=== PATIENT | male | born 1995 | race Caucasian/White ===

== ENCOUNTER 2019-10-31 14:28 | Emergency (ER) | payer OTHER, SELFPAY ==
[2019-10-31 14:53] VITALS: BP 132/81; PULSE 106; RESP 16; TEMP 37; O2SAT 97; BMI 38.0
[2019-10-31 14:57] LABS: UTC Strep Screen (Rapid) Positive (Negative)
--- NOTE | 2019-10-31 15:05 | HMH.EDUTC ---
[facility] [place] Clinical Impression: Strep throat Disposition: Home, Self-Care Condition on Discharge: Good Instructions: Strep Throat, DI for Strep Throat Additional Instructions: Drink plenty of fluids. Take tylenol or ibuprofen for pain or fever. Take the medications as directed. Follow up with your regular doctor. GO TO THE ER FOR ANY WORSENING SYMPTOMS Throw your tooth brush away and get a new one by tomorrow. Prescriptions: Amoxicillin/Potassium Clav [Augmentin 875-125 Tablet] 1 tab PO Q12H 10 Days #20 tab Transmission Status: Received by [facility] Referrals: Alex Morel MD [Primary Care Provider] - Time of Disposition: 15:11 Medical Decision Making - Medical Records Medical records reviewed: No: I reviewed the patient's medical records. - Regino Inquiry Pt receiving controlled substance: No Vital Signs: 10/31/19 14:53 10/31/19 15:18 Temperature 98.6 F 98.6 F Temperature Source Oral Oral Pulse Rate 106 H Pulse Rate [Right Brachial] 106 H Respiratory Rate 16 16 Blood Pressure 132/81 Blood Pressure [Left Arm] 132/81 Blood Pressure Mean [Left Arm] 98 Blood Pressure Source Automatic Cuff Blood Pressure Source [Left Arm] Automatic Cuff Blood Pressure Position Supine Blood Pressure Position [Left Arm] Sitting 02 Sat by Pulse Oximetry 97 Oxygen Delivery Method Room Air Room Air - Lab Data Lab results reviewed: Yes: I reviewed the patient's lab results. Lab Results 10/31/19 14:54: Strep Scn Rapid Clinic Positive A [facility] [place] - General Stated complaint: sore throat congestion Time Seen by Provider: 10/31/19 15:05 Mode of Arrival: Ambulatory Source of Information: Patient Description of Symptoms (Recalled from Triage Doc. by RN): PT COMPLAINS OF SORE THROAT AND CONGESTION X3 DAYS; NO FEVERS HEENT Symptoms (Recalled from RN notes): Yes Resp Symptoms (Recalled from RN notes): Yes Skin Symptoms (Recalled from RN notes): No MS Symptoms (Recalled from RN notes): No Functional Status (Recalled from RN notes): NA - History of Present Illness Provider Complaint: He c/o sore throat and feeling bad since yesterday. - Related Data Home Medications Medication Instructions Recorded Confirmed lansoprazole 30 mg capsule,delayed 30 mg PO DAILY 02/20/19 02/20/19 release Previous Rx's Medication Instructions Recorded albuterol sulfate 90 mcg/actuation 2 puff INHALATION Q6H PRN #8 g 02/20/19 aerosol inhaler Penicillin V Potassium 500 mg PO BID 10 Days #20 tab 06/11/19 escitalopram oxalate 20 mg tablet 20 mg PO DAILY 30 Days #30 tab 09/24/19 Amoxicillin/Potassium Clav 1 tab PO Q12H 10 Days #20 tab 10/31/19 [Augmentin 875-125 Tablet] Allergies Allergy/AdvReac Type Severity Reaction Status Date / Time No Known Allergies Allergy Verified 02/20/19 14:44 - Worker's Comp Is this a Worker's Comp case?: No Is this an H Worker's Comp?: No Is this a [place] Worker's Comp?: No [facility] History - Hepatitis A Screen Drug use history?: No High risk sexual behaviors?: No History of sexually transmitted infection?: No Currently employed?: No Childcare worker?: No Do you have indoor plumbing?: Yes Do you have electricity?: Yes Attestation statement:: This patient has been screened for Hepatitis A risk factors. I have reviewed the patient's past medical history: Yes Medical History: Reports:: Asthma Denies:: Cancer, Diabetes Mellitus Type 1, Diabetes Mellitus Type 2, MRSA Laterality Cases: Bilateral: Other Other Surgeries: Yes: Other Amputation: No Fractures: No Comment: [place] Teeth Removed - Social History Smoking Status: Unknown if ever smoked Tobacco Type: smokeless tobacco # Packs/Day (cigarettes): 0 Alcohol Intake: never Substance Use Type: denies use Occupational Status: other Family Hx:: Asthma, Hyperlipidemia, Hypertension ROS Obtained: Yes All systems reviewed & no additional complaints - Constitutional Constituti
[2019-10-31 15:18] VITALS: BP 132/81; PULSE 106; RESP 16; TEMP 37; O2SAT 97
== END 2019-10-31 15:19 | disposition home or self-care (01) ==
PROVIDERS: Emergency Provider Nurse Practitioner Family; PCP Emergency Medicine
DX: J02.0 Streptococcal pharyngitis (principal); J45.909 Unspecified asthma, uncomplicated
CPT/HCPCS: 87880; 99201

== ENCOUNTER 2020-04-11 12:39 | Emergency (ER) | payer OTHER, SELFPAY ==
[2020-04-11 12:40] VITALS: BP 153/95; PULSE 109; RESP 14; TEMP 36.6; O2SAT 98; BMI 35.9
--- NOTE | 2020-04-11 12:52 | HMH.EDUTC ---
[facility] [place] Clinical Impression: Dysuria Disposition: Home, Self-Care Condition on Discharge: Good Instructions: DI for Dysuria -- Adult Additional Instructions: Urine sent for culture, and to rule out gonorrhea and chlamydia. These results should be available Tuesday night. Increase fluids as much as possible. Prescriptions: Phenazopyridine HCl [Pyridium 200mg Tablet] 200 pow PO TID #6 tab Transmission Status: Pending to [facility] Referrals: Alex Morel MD [Primary Care Provider] - Time of Disposition: 13:06 Medical Decision Making - Regino Inquiry Pt receiving controlled substance: No - Lab Data Lab results reviewed: Yes: I reviewed the patient's lab results. Lab Results 04/11/20 12:44: Urine Color Yellow, Urine Appearance Clear, Urine pH 6.0, Ur Specific Post 1.025, Urine Protein 2+, Urine Glucose (UA) Negative, Urine Ketones Negative, Urine Blood Negative, Urine Nitrate Negative, Urine Bilirubin Negative, Urine Urobilinogen 1, Ur Leukocyte Esterase Negative [facility] [place] - General Stated complaint: Possible uti Time Seen by Provider: 04/11/20 12:53 - History of Present Illness Provider Complaint: Dysuria X 4 days. No fever. No vomiting or diarrhea. No discharge. States he is not sexually active. No hematuria. No history of kidney problems. Only king while urinating. No itching. Onset (ago): day(s) (4) Location: genitals Relieving factors: none Exacerbating factors: none Associated symptoms: denies other symptoms Treatments prior to arrival: none - Related Data Home Medications Medication Instructions Recorded Confirmed lansoprazole 30 mg capsule,delayed 30 mg PO DAILY 02/20/19 02/20/19 release Previous Rx's Medication Instructions Recorded albuterol sulfate 90 mcg/actuation 2 puff INHALATION Q6H PRN #8 g 02/20/19 aerosol inhaler Penicillin V Potassium 500 mg PO BID 10 Days #20 tab 06/11/19 Amoxicillin/Potassium Clav 1 tab PO Q12H 10 Days #20 tab 10/31/19 [Augmentin 875-125 Tablet] escitalopram oxalate 20 mg tablet See Rx Instructions .ROUTE 04/02/20 .COMPLEX #30 tab Phenazopyridine HCl [Pyridium 200 pow PO TID #6 tab 04/11/20 200mg Tablet] Allergies Allergy/AdvReac Type Severity Reaction Status Date / Time No Known Allergies Allergy Verified 02/20/19 14:44 [facility] History - Hepatitis A Screen Attestation statement:: This patient has been screened for Hepatitis A risk factors. I have reviewed the patient's past medical history: Yes Medical History: Reports:: Asthma Denies:: Cancer, Diabetes Mellitus Type 1, Diabetes Mellitus Type 2, MRSA Laterality Cases: Bilateral: Other Other Surgeries: Yes: Other Amputation: No Fractures: No Comment: [place] Teeth Removed - Social History Smoking Status: Unknown if ever smoked Tobacco Type: smokeless tobacco # Packs/Day (cigarettes): 0 Alcohol Intake: never Substance Use Type: denies use Occupational Status: other Family Hx:: Asthma, Hyperlipidemia, Hypertension ROS Obtained: Yes All systems reviewed & no additional complaints - Genitourinary Male Genitourinary: Reports as per HPI, Denies difficulty urinating, Denies genital lesions, Denies hematuria, Denies decreased urination Physical Exam - General General appearance: alert, in no apparent distress - Head Head exam: normocephalic - Eye Eye exam: Present: PERRL - Respiratory Respiratory exam: Present: normal lung sounds bilaterally - Cardiovascular Cardiovascular exam: Present: regular rate, normal rhythm - Abdominal Exam Abdominal exam: Present: soft - exam: Absent: urethral discharge - Neurological Exam Neurological exam: Present: alert, oriented X3 - Psychiatric Psychiatric exam: Present: normal affect, normal mood - Skin Skin exam: Present: warm, dry
[2020-04-11 12:53] LABS: Apearance,Urine Clear (Clear); Color,Urine Yellow (Yellow); Specific Gravity, Urine 1.025 (1.005-1.030)
[2020-04-11 12:54] LABS: Bilirubin,Urine Negative (Negative); Blood, Urine Negative (Negative); Glucose,Urine (UA) Negative (Negative); Ketones,Urine Negative (Negative); Protein,Urine 2+ (Negative); UTC Leukocyte Esterase,Urine Negative (Negative); UTC Nitrate,Urine Negative (Negative); Urobilinogen,Urine 1 EU/dl (0.2)
[2020-04-11 13:07] VITALS: BP 153/95; PULSE 109; RESP 14; TEMP 36.6; O2SAT 98
[2020-04-15 10:27] LABS: Neisseria gonorrhoeae, NAA Negative (Negative)
== END 2020-04-11 13:10 | disposition home or self-care (01) ==
PROVIDERS: Emergency Provider Physician Assistant; PCP Emergency Medicine
DX: R30.0 Dysuria (principal); J45.909 Unspecified asthma, uncomplicated
CPT/HCPCS: 81003; 87086; 87491; 87591; 99201

== ENCOUNTER 2022-09-08 01:20 | Emergency (ER) | payer OTHER, SELFPAY ==
[2022-09-08] VITALS (9 sets, daily range): BP systolic 96–144; BP diastolic 56–88; PULSE 61–90; RESP 16–24; TEMP 36.5–36.9; O2SAT 94–99; BMI 45.6
[2022-09-08 01:42] LABS: Basophils % 0.3 % (0.1-2.0); Eosinophils % 0.4 % (0.1-12.0); Hematocrit 48.4 % (42.0-52.0); Hemoglobin 15.7 g/dL (14.1-18.0); Lymphocytes # 1.3 K/mm3 (0.7-4.5); Lymphocytes % 15.8 % (10-50); Mean Corpuscular HGB Conc 32.5 g/dL (31.8-35.4); Mean Corpuscular Hemoglobin 28.3 pg (27.0-31.2); Mean Corpuscular Volume 87.1 fl (80-94); Mean Platelet Volume 7.7 fl (7.4-10.4); Monocytes # 0.4 K/mm3 (0.1-1.0); Monocytes % 4.2 % (1.7-9.3); Neutrophils # 6.7 K/mm3 (1.8-7.8); Neutrophils % 79.3 % (37.0-80.0); Platelet Count 260 K/mm3 (142-424); Red Blood Count 5.56 M/mm3 (4.60-6.20); Red Cell Distribution Width 13.3 % (11.5-17.5); White Blood Count 8.4 K/mm3 (4.8-10.8)
[2022-09-08 01:44] LABS: Chloride 98 mmol/L (98-107); Potassium 4.2 mmoL/L (3.5-5.1); Sodium 141 mmol/L (136-145)
[2022-09-08 01:46] LABS: Alanine Aminotransferase 51 U/L (12-78); Aspartate Amino Transferase 43 U/L (17-59); Blood Urea Nitrogen 9 mg/dl (9-20); Creatinine Clearance Estimated 120 mL/min (50-200); Estimated Glomerular Filt Rate 102 ml/min (>60); Ethyl Alcohol 228 mg/dl (0-10); GFR (African American) 123 ML/MIN (>60)
[2022-09-08 01:47] LABS: Albumin Level 4.3 g/dl (3.5-5.0); Albumin/Globulin Ratio 1.3 (1.1-1.8); Alkaline Phosphatase 96 U/L (38-126); Anion Gap 20.2 mEq/L (5-15); Bilirubin,Total 0.3 mg/dl (0.2-1.3); Calcium 8.6 mg/dl (8.4-10.2); Carbon Dioxide 27 mmol/L (22.0-30.0); Globulin 3.4 g/dL (1.3-3.2); Glucose 109 mg/dl (74-100); Total Protein,Serum 7.7 g/dl (6.3-8.2)
--- NOTE | 2022-09-08 01:49 | PC.NURSE ---
Pt bother at BS
--- NOTE | 2022-09-08 04:58 | HMH.EDALCO ---
Discharge Plan Disposition Patient Disposition: Home, Self-Care Chief Complaint: Alcohol Prescriptions Prescriptions: No Action escitalopram oxalate 20 mg tablet See Rx Instructions .ROUTE .COMPLEX Rx Instructions: TAKE 1 TABLET BY MOUTH ONCE DAILY Referrals Follow up/Referrals: Mayra Caal PA [Primary Care Provider] - See instructions Clinical Impressions Clinical Impression: Alcoholic intoxication Instructions Patient Instructions: DI for Alcohol Use Disorder Discharge ED Provider: Adriel (ED),Alex Cantu Alcohol HPI General Chief Complaint: Alcohol Stated Complaint: intoxicated Time Seen by Provider: 09/08/22 04:00 Mode of Arrival: EMS Source of Information: Patient, EMS and Medical Record Limitations: No Limitations Description of Symptoms (Recalled from ER Triage Doc. by RN): EMS called out for a intoxaction person. family reports pt drank a fifth of bourbon tonight History of Present Illness HPI narrative: pt with etoh intox - pt reports not usual drinking daily MD complaint: alcohol intoxication Last drink: hours (ago) Chronic alcohol use: No Previous visits for alcohol intoxication: No Recent trauma: No Associated symptoms: denies other symptoms Related Data Home Medications Medication Instructions Recorded Confirmed escitalopram oxalate 20 mg tablet See Rx Instructions .Route 09/08/22 09/08/22 .COMPLEX Depression Allergies Allergy/AdvReac Type Severity Reaction Status Date / Time No Known Allergies Allergy Verified 02/20/19 14:44 [facility] Disclaimer: The information contained in this section may have been updated after the patient was seen, as this information can be updated by other users. Social History Smoking Status: Unknown if ever smoked alcohol intake: never substance use type: denies use current occupational status: other Travel in the last 8 weeks: None ROS Obtained: Yes All systems reviewed & no additional complaints except as documented Physical Exam General General appearance: alert Head Head exam: normocephalic Eye Eye exam: Present PERRL and EOMI ENT ENT exam: Present mucous membranes moist Neck Neck exam: Present trachea midline Respiratory Respiratory exam: Present normal lung sounds bilaterally; Absent respiratory distress Cardiovascular Cardiovascular exam: Present regular rate Abdominal Exam Abdominal exam: Present soft Extremities Exam Extremities exam: Present full ROM Neurological Exam Neurological exam: Present alert, oriented X3 and CN II-XII intact; Absent motor sensory deficit Psychiatric Psychiatric exam: Absent suicidal ideation Skin Skin exam: Absent rash Medical Decision Making Medical Records Medical records reviewed: Yes I reviewed the patient's medical records. Regino Inquiry Pt receiving controlled substance: No Vital Signs: 05/17/23 01:20 09/08/22 01:45 09/08/22 02:00 Temperature 97.7 F Temperature Source Oral Pulse Rate 75 70 Pulse Rate [Left] 83 Respiratory Rate 16 24 24 Blood Pressure 101/62 L 99/56 L Blood Pressure [Right Arm] 120/59 L Blood Pressure Mean Blood Pressure Mean [Right Arm] 79 02 Sat by Pulse Oximetry 99 96 94 L Oxygen Delivery Method Oxygen Flow Rate (LPM) 09/08/22 02:30 09/08/22 03:00 09/08/22 03:30 Temperature Temperature Source Pulse Rate 66 66 63 Pulse Rate [Left] Respiratory Rate 22 22 21 Blood Pressure 96/58 L 98/58 L 102/62 L Blood Pressure [Right Arm] Blood Pressure Mean 73 Blood Pressure Mean [Right Arm] 02 Sat by Pulse Oximetry 96 96 98 Oxygen Delivery Method Nasal Cannula Nasal Cannula Oxygen Flow Rate (LPM) 2 2 2 09/08/22 04:01 09/08/22 04:30 Temperature Temperature Source Pulse Rate 61 64 Pulse Rate [Left] Respiratory Rate 19 18 Blood Pressure 108/63 L 102/62 L Blood Pressure [Right Arm] Blood Pressure Mean 74 74 Blood Pressure Mean [Right Arm] 02 Sat by Pulse Oximetry 99
== END 2022-09-08 05:27 | disposition home or self-care (01) ==
PROVIDERS: Emergency Provider Emergency Medicine; PCP Physician Assistant
DX: F10.929 Alcohol use, unspecified with intoxication, unspecified (principal)
CPT/HCPCS: 80053; 85025; 96360; 96361; 99284

== ENCOUNTER → 2022-09-15 18:46 | Outpatient (CLI) | payer OTHER, SELFPAY ==
[2022-09-15 19:31] LABS: Basophils % 0.5 % (0.1-2.0); Eosinophils # 0.1 K/mm3 (0.0-0.4); Eosinophils % 0.8 % (0.1-12.0); Hematocrit 46.8 % (42.0-52.0); Hemoglobin 15.2 g/dL (14.1-18.0); Lymphocytes # 1.7 K/mm3 (0.7-4.5); Lymphocytes % 20.1 % (10-50); Mean Corpuscular HGB Conc 32.4 g/dL (31.8-35.4); Mean Corpuscular Hemoglobin 28.2 pg (27.0-31.2); Mean Platelet Volume 8.6 fl (7.4-10.4); Monocytes # 0.4 K/mm3 (0.1-1.0); Monocytes % 5.1 % (1.7-9.3); Neutrophils # 6.1 K/mm3 (1.8-7.8); Neutrophils % 73.4 % (37.0-80.0); Platelet Count 301 K/mm3 (142-424); Red Blood Count 5.38 M/mm3 (4.60-6.20); Red Cell Distribution Width 13.5 % (11.5-17.5); White Blood Count 8.4 K/mm3 (4.8-10.8)
[2022-09-15 19:39] LABS: Alanine Aminotransferase 52 U/L (12-78); Albumin Level 4.4 g/dl (3.5-5.0); Albumin/Globulin Ratio 1.4 (1.1-1.8); Alkaline Phosphatase 107 U/L (38-126); Anion Gap 16.6 mEq/L (5-15); Aspartate Amino Transferase 36 U/L (17-59); Bilirubin,Total 0.7 mg/dl (0.2-1.3); Blood Urea Nitrogen 9 mg/dl (9-20); Calcium 9.1 mg/dl (8.4-10.2); Carbon Dioxide 29 mmol/L (22.0-30.0); Chloride 97 mmol/L (98-107); Chol/HDL Ratio 3.7 (1-3.5); Cholesterol 157 mg/dl (140-200); Estimated Glomerular Filt Rate 136 ml/min (>60); GFR (African American) 165 ML/MIN (>60); Globulin 3.1 g/dL (1.3-3.2); Glucose 91 mg/dl (74-100); HDL Cholesterol 43 mg/dl (40-60); Potassium 4.6 mmoL/L (3.5-5.1); Sodium 138 mmol/L (136-145); Total Protein,Serum 7.5 g/dl (6.3-8.2); Triglycerides 112 mg/dl (30-150); VLDL Cholesterol 22 mg/dL (0-40)
[2022-09-15 19:50] LABS: Direct LDL Cholesterol 99.04 mg/dL (100-129)
[2022-09-15 20:10] LABS: Thyroid Stimulating Hormone 1.14 uIU/mL (0.465-4.68)
[2022-09-15 20:30] LABS: Vitamin B12 310 pg/mL (239-931)
== END ==
PROVIDERS: PCP Physician Assistant; Visit Provider Physician Assistant
DX: Z00.00 Encounter for general adult medical examination without abnormal findings (principal); R25.1 Tremor, unspecified; E55.9 Vitamin D deficiency, unspecified
CPT/HCPCS: 80053; 80061; 82306; 82607; 83735; 84443; 85025

== ENCOUNTER → 2023-01-05 14:40 | Outpatient (CLI) | payer OTHER, SELFPAY ==
--- NOTE | 2023-01-05 14:40 | MR_ITS ---
FINAL REPORT CLINICAL HISTORY: pain with hip flexion - r/o labrum tear pt stated pain when walking feels like hip is going to pop out COMPARISON: None FINDINGS: Multiplanar MR imaging of the left hip was performed without contrast. There is no evidence of fracture or dislocation. There is no evidence of avascular necrosis. No bony mass is identified. No well-defined labral tear is identified. A small joint effusion is seen. The tendons are intact. The musculature is intact. No soft tissue mass or cyst is identified. IMPRESSION: Small joint effusion. No well-defined labral tear is identified. Reviewed, Interpreted and Dictated by Enzo Dunham III, MD Transcribed by Albina Olson Authenticated and . [facility]
== END ==
PROVIDERS: PCP Physician Assistant; Visit Provider Physician Assistant
DX: M25.552 Pain in left hip (principal)
CPT/HCPCS: 73721

== ENCOUNTER 2023-01-07 12:29 | Emergency (ER) | payer OTHER, SELFPAY ==
[2023-01-07 12:30] VITALS: BP 145/80; PULSE 84; RESP 17; TEMP 36.7; O2SAT 100; BMI 39.2
--- NOTE | 2023-01-07 12:59 | EXP.UTC ---
Discharge Plan Disposition Patient Disposition: Home, Self-Care Condition: Good Prescriptions Prescriptions: New methylprednisolone [Medrol (Oseas)] 4 mg tablets,dose pack See Rx Instructions .Route .COMPLEX 6 Days Qty: 21 0RF Rx Instructions: taper pack; No Action Rexulti 1 mg tablet 1 mg PO DAILY Qty: 30 2RF omeprazole 20 mg capsule,delayed release(DR/EC) 20 mg PO DAILY Qty: 90 3RF propranolol 80 mg capsule,extended release 24hr 80 mg PO DAILY Qty: 30 2RF ergocalciferol (vitamin D2) 1,250 mcg (50,000 unit) capsule 1,250 mcg PO WEEKLY Qty: 14 3RF cholecalciferol (vitamin D3) 50 mcg (2,000 unit) capsule 50 mcg PO DAILY Qty: 90 3RF methylprednisolone [Medrol (Oseas)] 4 mg tablets,dose pack 4 mg PO PER PKG DIR 6 Days Qty: 21 0RF ondansetron 8 mg tablet,disintegrating 8 mg PO Q8H PRN (Reason: nausea and vomiting) Qty: 30 0RF Referrals Follow up/Referrals: Mayra Caal PA [Primary Care Provider] - See instructions Activity Restrictions/Add. Instructions Additional Instructions/Restrictions: *Ibuprofen carli 6 hours with meal as needed for pain/inflammation *Remember you had a Toradol shot in the clinic today, which is similar to Motrin *Not additional anti-inflammatory like motrin, aleve, advil with the above amount of ibuprofen. You can still take Tylenol every 4 hours as needed if you need something else for pain *Ice 20 minutes every 2 hours for the first 48 hours after the initial injury followed by moist heat every 20 minutes 3-4 times a day to affected area Start Medrol pack tomorrow *Keep this area active, no movement leads to more stiffness, However take it easy and avoid heavy lifting pushing or pulling *Follow up with you family doctor if no improvement for further treatment Follow up with Orthopedics as recommended by your Family Doctor Clinical Impressions Clinical Impression: Hip pain Qualifiers: Laterality: left Qualified Code(s): M25.552 - Pain in left hip Instructions Patient Instructions: Sciatica, DI for Sciatica Discharge ED Provider: Katey Bass [facility] General Stated complaint: Lt side hip pain, no accident Mode of Arrival: Ambulatory Source of Information: Patient Limitations: No Limitations Time Seen by Provider: 01/07/23 13:00 Description of Symptoms (Recalled from Triage Doc. by RN): States that he had an mri the other day and now after laying in it his left hip has been hurting. HEENT Symptoms (Recalled from RN notes): No Resp Symptoms (Recalled from RN notes): No Skin Symptoms (Recalled from RN notes): No MS Symptoms (Recalled from RN notes): Yes Functional Status (Recalled from RN notes): wnl History of Present Illness Provider Complaint: Patient states that he has been seeing his PCP for pain in his left hip States that he had an MRI a few days ago and was laying on the table funny and it has got his hip hurting again and it is going down into his left upper leg State that he is waiting for an appoitnment with Orthopedics but today it was still hurting so he came in to get something to help with the pain Denies new injury Denies loss of control of bowel or bladder Related Data Previous Rx's Medication Instructions Recorded omeprazole 20 mg capsule,delayed 20 mg PO DAILY #90 caps 09/15/22 release propranolol 80 mg capsule,24 80 mg PO DAILY #30 caps 09/15/22 hr,extended release cholecalciferol (vitamin D3) 50 50 mcg PO DAILY #90 caps 09/16/22 mcg (2,000 unit) capsule ergocalciferol (vitamin D2) 1,250 1,250 mcg PO WEEKLY #14 caps 09/16/22 mcg (50,000 unit) capsule brexpiprazole 1 mg tablet (Rexulti) 1 mg PO DAILY #30 tabs 11/16/22 methylprednisolone 4 mg tablets in 4 mg PO PER PKG DIR 6 days #21 tabs 12/07/22 a dose pack (Medrol (Oseas)) ondansetron 8 mg disintegrating 8 mg PO Q8H PRN nausea and 12/07/22 tablet vomiting #30 tabs methylprednisolone 4 mg tablets in See Rx Instructions .Route 01/07/23 a dose
[2023-01-07 13:37] VITALS: BP 145/80; PULSE 84; RESP 17; TEMP 36.7; O2SAT 100
== END 2023-01-07 13:38 | disposition home or self-care (01) ==
PROVIDERS: Emergency Provider Nurse Practitioner; PCP Physician Assistant
DX: M25.552 Pain in left hip (principal); K21.9 Gastro-esophageal reflux disease without esophagitis; F41.9 Anxiety disorder, unspecified
CPT/HCPCS: 96372; 99212; 99214; G0463

== ENCOUNTER → 2023-01-25 10:33 | Outpatient (CLI) | payer OTHER, SELFPAY ==
--- NOTE | 2023-01-25 10:36 | XR_ITS ---
FINAL REPORT CLINICAL HISTORY: lt hip pain FINDINGS: 2 views of the left hip and an AP pelvis were obtained. There is no acute fracture or dislocation. The joint spaces are intact. There are no soft tissue abnormalities. IMPRESSION: No acute process. Reviewed, Interpreted and Dictated by Enzo Dunham III, MD Transcribed by Louie Rodriguez Authenticated and [facility]
== END ==
PROVIDERS: PCP Physician Assistant; Visit Provider Orthopaedic Surgery
DX: M25.552 Pain in left hip (principal)
CPT/HCPCS: 73502

== ENCOUNTER 2023-01-28 11:25 | Emergency (ER) | payer OTHER, SELFPAY ==
[2023-01-28 12:00] VITALS: BP 150/88; PULSE 81; RESP 18; TEMP 36.9; O2SAT 100; BMI 39.9
--- NOTE | 2023-01-28 12:04 | EXP.UTC ---
Discharge Plan Disposition Patient Disposition: Home, Self-Care Condition: Good Prescriptions Prescriptions: New ondansetron 4 mg Tablet,Disintegrating 4 mg PO Q8H PRN (Reason: Nausea) Qty: 12 0RF No Action meloxicam 15 mg tablet 15 mg PO DAILY propranolol 80 mg capsule,extended release 24 hr 80 mg PO DAILY omeprazole 20 mg capsule,delayed release(DR/EC) 20 mg PO DAILY ergocalciferol (vitamin D2) 1,250 mcg (50,000 unit) capsule 1,250 mcg PO WEEKLY cholecalciferol (vitamin D3) 50 mcg (2,000 unit) capsule 50 mcg PO DAILY Rexulti 1 mg tablet 1 mg PO DAILY Referrals Follow up/Referrals: Mayra Caal PA [Primary Care Provider] - See instructions Activity Restrictions/Add. Instructions Additional Instructions/Restrictions: Drink plenty of fluids. Take the medications as directed. Follow up with your regular doctor. GO TO THE ER FOR ANY WORSENING SYMPTOMS Clinical Impressions Clinical Impression: Gastroenteritis Stand Alone Forms Stand Alone Forms: Work/School Release Instructions Patient Instructions: Viral Gastroenteritis, DI for Viral Gastroenteritis -- Adult, Ondansetron Discharge ED Provider: Osiel Castelan [facility] General Stated complaint: nausea, vomiting Time Seen by Provider: 01/28/23 12:04 History of Present Illness Provider Complaint: He states that for the past 1 day he has had n/v/d. He denies abdominal pain. Related Data Home Medications Medication Instructions Recorded Confirmed brexpiprazole 1 mg tablet (Rexulti) 1 mg PO DAILY . 01/28/23 01/28/23 cholecalciferol (vitamin D3) 50 50 mcg PO DAILY Supplement 01/28/23 01/28/23 mcg (2,000 unit) capsule ergocalciferol (vitamin D2) 1,250 1,250 mcg PO WEEKLY , 01/28/23 01/28/23 mcg (50,000 unit) capsule meloxicam 15 mg tablet 15 mg PO DAILY . 01/28/23 01/28/23 omeprazole 20 mg capsule,delayed 20 mg PO DAILY . 01/28/23 01/28/23 release propranolol 80 mg capsule,24 80 mg PO DAILY . 01/28/23 01/28/23 hr,extended release Previous Rx's Medication Instructions Recorded ondansetron 4 mg disintegrating 4 mg PO Q8H PRN Nausea #12 tabs 01/28/23 tablet Allergies Allergy/AdvReac Type Severity Reaction Status Date / Time No Known Allergies Allergy Verified 01/28/23 12:14 [facility] Disclaimer: The information contained in this section may have been updated after the patient was seen, as this information can be updated by other users. Medical History Anxiety GERD (gastroesophageal reflux disease) Surgical History No history of previous surgery Social History Smoking Status: Never smoker alcohol intake: never substance use type: denies use current occupational status: other Travel in the last 8 weeks: None ROS Obtained: Yes All systems reviewed & no additional complaints except as documented Constitutional Constitutional: Denies chills, Denies fever(s) and Reports poor appetite ENT Ears, Nose, Mouth, and Throat: Denies dizziness and Denies sore throat Cardiovascular Cardiovascular: Denies dyspnea Respiratory Respiratory: Denies chest congestion, Denies cough and Denies dyspnea Gastrointestinal Gastrointestingal: Reports as per HPI; Denies abdominal pain Musculoskeletal Musculoskeletal: Denies arthralgias Integumentary/Breasts Skin/Breast: Denies rash Neurologic Neurologic: Denies dizziness Physical Exam General General appearance: alert and in no apparent distress Head Head exam: atraumatic and normocephalic Eye Eye exam: Present normal appearance, PERRL and EOMI ENT ENT exam: Present normal exam, normal oropharynx, mucous membranes moist, TM's normal bilaterally and normal external ear exam Neck Neck exam: Present normal inspection, full ROM and trachea midline; Absent tend
[2023-01-28 12:22] LABS: UTC Influenza A Antigen Negative (Negative); UTC Influenza B Antigen Negative (Negative)
[2023-01-28 12:54] VITALS: BP 150/88; PULSE 81; RESP 18; TEMP 36.9; O2SAT 100
== END 2023-01-28 12:54 | disposition home or self-care (01) ==
PROVIDERS: Emergency Provider Nurse Practitioner Family; PCP Physician Assistant
DX: A08.4 Viral intestinal infection, unspecified (principal); K21.9 Gastro-esophageal reflux disease without esophagitis; F41.9 Anxiety disorder, unspecified
CPT/HCPCS: 87635; 87804; 99212; 99214; G0463

== ENCOUNTER 2023-03-10 17:30 | Outpatient (RCR) | payer OTHER, SELFPAY ==
--- NOTE | 2023-02-08 18:00 | HMH.PTOPEV ---
PT Outpatient Evaluation Rehab PT Outpatient Evaluation Start: 02/08/23 16:55 Freq: Status: Active Protocol: Document 02/08/23 16:56 MAXIMOITZ (Rec: 02/08/23 18:00 CHERYL [id number]) E-signed By Gladys Bradford, PT Outpatient Therapy Subjective History Subjective History Pt is a 27 y/o male who reports insidious onset of L hip pain 6 months ago. Pt reports sharp anterior hip pain that increases with activity. Pt also reports it feels like my hip is like the ball is coming out of the socket. Pt denies clicking, popping, catching or numbness/tingling. Pt reports pain is aggravated by twisting, prolonged walking, and stair climbing. Pt reports at the end of a work day his entire left leg will hurt and his leg feels weak like it could give out on him, pt denies falls. Pt reports he was prescribed an anti-inflamatory medication he has been taking for ~1.5 weeks which has helped with pain intensity overall. Pt had a left hip MRI on 01/05/23 with impression of Small joint effusion. No well- defined labral tear is identified. Pt reports he returns to his MD on 03/08/23. Occupation: [employer] - involves heavy lifting and twisting Medical History: Asthma Observation: hip ER noted bilaterally at rest and with gait New diagnosis of cancer in past 12 No months? Chief Complaint Pain,Gives out/Unstable Symptom Type Ache,Sharp Symptoms Relieved By Rest/Positioning,Ice, Prescription Meds Symptoms Aggravated By Physical Activity,Twisting, Walking Prior Functional Limitations None Current Functional Limitations None,Squatting,Walking,Stairs Symptom Description Constant but Variable Level of pain today (0-10) 2 Pain scale - at its best (0-10) 2 Pain scale - at its worst (0-10) 8 Hip/Knee Eval Assistive Device Assistive Devices None / NA Palpation Tenderness left Knee Palpation Overall Comment ASIS, hip flexor, greater trochanter Hip Palpation Findings Tenderness MMT Hip Flexion Strength Grade 4 Good Hip Abduction Strength Grade 4 Good Hip Adduction Strength Grade 4 Good Hip Extension Strength Grade 4- Good- Knee Extension Strength Grade 5 Normal Knee Flexion Strength Grade 5 Normal ROM Hip Flexion w/Knee Extended Active Range 85 of Motion (degrees) Hip Abduction Active Range of Motion ( 30 degrees) Hip Extension Active Range of Motion ( 10 degrees) Hip External Rotation Active Range of 30 Motion (degrees) Hip Internal Rotation Active Range of 22 Motion (degrees) Special Tests Hip Scouring (Quadrant) Test Positive Left Figueroa Test Positive Lower Extremity Functional Index Activities Today, do you or would you have any difficulty at all with: a.Any of your usual work, housework or Moderate difficulty school activities b. Your usual hobbies, recreational or A little bit of difficulty sporting activities c. Getting into or out of the bath A little bit of difficulty d. Walking between rooms No difficulty e. Putting on your shoes or socks No difficulty f. Squatting Moderate difficulty g. Lifting an object, like a bag of Moderate difficulty groceries from the floor h. Performing light activities around A little bit of difficulty your home i. Performing heavy activities around Moderate difficulty your home j. Getting into or out of a car Quite a bit of difficulty k. Walking 2 blocks No difficulty l. Walking a mile A little bit of difficulty m. Going up or down 10 stairs (about 1 A little bit of difficulty flight of stairs) n. Standing for 1 hour No difficulty o. Sitting for 1 hour No difficulty p. Running on even ground A little bit of difficulty q. Running on uneven ground Moderate difficulty r. Making sharp turns while running fast A little bit of difficulty s. Hopping Moderate difficulty t. Rolling over in bed A little bit of difficulty LEFI Score Lower Extremity Functional Index Score 57 Outpatient Therapy Assessment Impairments Problems/Impairmments Palpation Tenderness,Impaired Range of Motion,Impaired Strength,Impaired Gait Pattern ,Impaired Walking,Impaired Lifting,Impaired Stair Climbing,Impaired Squatting, Impaired Work Activities, Subjective C/O Pain,Impaired Self Care/Self Management Prognosis Rehab Potential Good Clinical Impression Consistent with Diagnosis Yes Short Term Goals Number of Weeks 3 Increase Range of Motion Yes: ImproveL hip flexion to at least 95 Decrease Subjective C/O Pain Yes: Improve pain at worst to 6/10 to improve overall QOL Improve Self Care/Self Management Yes Patient to be Ind w/ HEP Yes Sports Instructor Goals Number of Weeks 6 Increase Range of Motion Yes: Improve hip flexion to at least 105, abd to 40, IR/ER to 30-35 Increase Strength Yes: Improve hip strength to at least 4+-5/5 to assist with function Increase Ability to Walk Yes: >30' with pain 4/10 or less to assist with occupation Improve Ability to Climb Stairs Yes: 1 flight reciprocally with pain 4/10 or less Decrease Subjective C/O Pain Yes: Improve pain at worst to 4/10 to improve overall QOL Improve Self Care/Self Management Yes: Improve LEFS score to at least 67 to improve overall QOL Patient to be Ind w/ Advanced HEP Yes Outpatient Therapy Plan of Care Treatment Plan May Include Therapeutic Exercise Including Home Yes Exercise Program Manual Therapy Techniques Yes Neuromuscular Re-education Yes Therapeutic Activities to Return to Yes Previous Functional/Work Level Gait Training Yes ADL/Self Care Education Yes Mechanical Traction Yes Dry Needling Yes Thermal Modalities Yes Electrical Stimulation Yes Ultrasound/Phonophoresis Yes Iontophoresis Yes Massage Yes Manual Lymphatic Drainage Yes Eval/Re-Eval Yes Frequency Times per week 2 Duration Number of Weeks 4-6 Addendums This patient is a candidate for social No or vocational rehab? Patient/Guardian verbally acknowledges Yes understanding of treatment program and consents to further treatment? Patient/Guardian verbally acknowledges Yes understanding of diagnosis, prognosis and goals for treatment? Eval Complexity PT Charges 49360 - Low Complexity Shoulder/Elbow Eval Shoulder Objective Measurements Elbow Objective Measurements PHYSICIAN CERTIFICATION: I certify the specified therapy services for Chandrakant Kinney are required, authorized, and reviewed every 30 days.
== END 2023-03-10 18:30 | disposition home or self-care (01) ==
LOC: PT 17:30
PROVIDERS: PCP Physician Assistant; Visit Provider Orthopaedic Surgery
DX: M25.512 Pain in left shoulder (principal); S76.012A Strain of muscle, fascia and tendon of left hip, initial encounter
CPT/HCPCS: 97010; 97110; 97163

== ENCOUNTER 2023-09-14 11:55 | Emergency (ER) | payer OTHER, SELFPAY ==
[2023-09-14 12:05] VITALS: BP 119/83; PULSE 76; RESP 19; TEMP 37; O2SAT 98; BMI 38.8
--- NOTE | 2023-09-14 12:16 | ED_ITS ---
Discharge Plan Disposition Patient Disposition: Home, Self-Care Condition: Good Prescriptions Prescriptions: New azithromycin [Zithromax] 250 mg tablet 250 mg PO UD DOSE PK Qty: 6 0RF Rx Instructions: Take two (2) tablets today, then one (1) tablet days #2 thru #5 methylprednisolone 4 mg Tablets,Dose Pack 4 mg PO DIRECTED 6 Days Qty: 21 0RF Rx Instructions: Take 1 pack as directed for 6 days [id number] [Bromfed DM] 2-30-10 mg/5 mL Syrup 5 ml PO Q6H PRN (Reason: Cough) Qty: 240 0RF No Action Rexulti 2 mg tablet 2 mg PO DAILY Qty: 30 2RF Rexulti 1 mg tablet See Rx Instructions .ROUTE .COMPLEX Qty: 30 1RF Dose Instruction: TAKE 1 TABLET BY MOUTH ONCE DAILY Rx Instructions: TAKE 1 TABLET BY MOUTH ONCE DAILY albuterol sulfate 90 mcg/actuation HFA aerosol inhaler 1 inh inhalation QID Qty: 8.5 2RF celecoxib 200 mg capsule See Rx Instructions .ROUTE .COMPLEX Qty: 30 0RF Dose Instruction: TAKE 1 CAPSULE BY MOUTH ONCE DAILY Rx Instructions: TAKE 1 CAPSULE BY MOUTH ONCE DAILY omeprazole 20 mg capsule,delayed release(DR/EC) 20 mg PO DAILY ergocalciferol (vitamin D2) 1,250 mcg (50,000 unit) capsule 1,250 mcg PO WEEKLY cholecalciferol (vitamin D3) 50 mcg (2,000 unit) capsule 50 mcg PO DAILY Referrals Follow up/Referrals: Mayra Caal PA [Primary Care Provider] - See instructions Activity Restrictions/Add. Instructions Additional Instructions/Restrictions: Drink plenty of fluids. Take tylenol or ibuprofen for pain or fever. Take the medications as directed. Follow up with your regular doctor. GO TO THE ER FOR ANY WORSENING SYMPTOMS Clinical Impressions Clinical Impression: Sinusitis, Bronchitis Stand Alone Forms Stand Alone Forms: Work/School Release Instructions Patient Instructions: Sinusitis, DI for Sinusitis Discharge ED Provider: Osiel Castelan [facility] General Stated complaint: cough, congestion, headache Time Seen by Provider: 09/14/23 12:15 History of Present Illness Provider Complaint: He states that for the past 4 days he has had sinus and chest congestion. Related Data Home Medications Medication Instructions Recorded Confirmed cholecalciferol (vitamin D3) 50 50 mcg PO DAILY Supplement 01/28/23 09/14/23 mcg (2,000 unit) capsule ergocalciferol (vitamin D2) 1,250 1,250 mcg PO WEEKLY , 01/28/23 09/14/23 mcg (50,000 unit) capsule omeprazole 20 mg capsule,delayed 20 mg PO DAILY . 01/28/23 09/14/23 release Previous Rx's Medication Instructions Recorded brexpiprazole 1 mg tablet (Rexulti) See Rx Instructions .Route 04/29/23 .COMPLEX #30 tabs brexpiprazole 2 mg tablet (Rexulti) 2 mg PO DAILY #30 tabs 05/31/23 albuterol sulfate 90 mcg/actuation 1 inh inhalation QID Asthma #8.5 06/02/23 aerosol inhaler grams celecoxib 200 mg capsule See Rx Instructions .Route 08/10/23 .COMPLEX #30 caps azithromycin 250 mg tablet 250 mg PO UD DOSE PK #6 tabs 09/14/23 (Zithromax) [id number] 5 ml PO Q6H PRN Cough #240 mL 09/14/23 2 mg-30 mg-10 mg/5 mL oral syrup (Bromfed DM) methylprednisolone 4 mg tablets in 4 mg PO DIRECTED 6 days #21 tabs 09/14/23 a dose pack Allergies Allergy/AdvReac Type Severity Reaction Status Date / Time No Known Allergies Allergy Verified 09/14/23 12:[address] [facility] Disclaimer: The information contained in this section may have been updated after the patient was seen, as this information can be updated by other users. Medical History Anxiety GERD (gastroesophageal reflux disease) Surgical History No history of previous surgery Social History Smoking Status: Never smoker alcohol intake: never substance use type: denies use current occupational status: other Travel in the last 8 weeks: None ROS Obtained: Yes All systems reviewed & no additional complaints except as documented Constitutional Constitutional: Reports poor appetite Eyes Eyes: Reports system reviewed and no additional complaints, except as documented ENT Ears, Nose, Mouth, and Throat: Reports as per HPI Cardiovascular Cardiovascular: Reports system reviewed and no additional complaints, except as documented and Denies chest pain Respiratory Respiratory: Denies shortness of breath, Reports chest congestion, Reports cough, Denies stridor and Denies wheezing Gastrointestinal Gastrointestingal: Reports system reviewed and no additional complaints, except as documented; Denies abdominal pain, diarrhea or vomiting Musculoskeletal Musculoskeletal: Reports system reviewed and no additional complaints, except as documented and Denies arthralgias Integumentary/Breasts Skin/Breast: Reports system reviewed and no additional complaints, except as documented and Denies rash Neurologic Neurologic: Denies paresthesias Allergic/Immunologic Allergic/Immunologic: Denies wheezing Physical Exam General General appearance: alert and in no apparent distress Eye Eye exam: Present normal appearance, PERRL and EOMI ENT ENT exam: Present mucous membranes moist and normal external ear exam Expanded ENT Exam External ear exam: Present normal external inspection TM/Canal exam: Bilateral TM: erythema and bulging Nose exam: Absent sinus tenderness Nasal speculum exam: Bilateral: normal Mouth exam: Present normal external inspection; Absent drooling Teeth exam: Present normal inspection Throat exam: Present tonsillar erythema and tonsillomegaly Neck Neck exam: Present normal inspection, full ROM and trachea midline; Absent tenderness, lymphadenopathy or thyromegaly Chest Chest inspection: Present normal inspection and symmetric chest wall rise; Absent tenderness or rash Respiratory Respiratory exam: Present normal lung sounds bilaterally; Absent respiratory distress, wheezes, stridor or accessory muscle use Cardiovascular Cardiovascular exam: Present regular rate, normal rhythm and normal heart sounds Abdominal Exam Abdominal exam: Present soft; Absent distention, tenderness, guarding, rebound or rigidity Extremities Exam Extremities exam: Present normal inspection, full ROM and normal capillary refill; Absent tenderness or calf tenderness Back Exam Back exam: Present normal inspection and full ROM; Absent tenderness Neurological Exam Neurological exam: Present alert and oriented X3 Psychiatric Psychiatric exam: Present normal affect and normal mood Skin Skin exam: Present warm, dry, intact and normal color Lymphatic Lymphatic Findings: no adenopathy Medical Decision Making Medical Records Medical records reviewed: No I reviewed the patient's medical records. Regino Inquiry Pt receiving controlled substance: No
[2023-09-14 13:18] VITALS: BP 119/83; PULSE 76; RESP 19; TEMP 37; O2SAT 98
== END 2023-09-14 13:18 | disposition home or self-care (01) ==
PROVIDERS: Emergency Provider Nurse Practitioner Family; PCP Physician Assistant
DX: J40 Bronchitis, not specified as acute or chronic (principal); J01.90 Acute sinusitis, unspecified; R51.9 Headache, unspecified; R05.9 Cough, unspecified; R09.81 Nasal congestion; R09.89 Other specified symptoms and signs involving the circulatory and respiratory systems; F41.9 Anxiety disorder, unspecified; K21.9 Gastro-esophageal reflux disease without esophagitis; R63.0 Anorexia
CPT/HCPCS: 99212; 99214; G0463